=== PATIENT | female | born 1940 | race Caucasian/White ===

== ENCOUNTER 2019-10-03 10:22 | Inpatient (IN) | payer MEDICARE ==
--- NOTE | 2019-10-03 11:06 | CT ---
[id number] CT/CT Head WO IV EXAM: CT Head WO IV CLINICAL DATA: ALTERED MENTAL STATUS. COMPARISON STUDY: June 29, 2017. FINDINGS: Numerous foci of hyperdensity within the left parietal lobe with surrounding edema. These are consistent with acute hemorrhage and may represent hemorrhagic metastases. There is mass effect on the surrounding brain with approximately 3 mm of [id number] shift of midline. The largest focus measures up to 2.5 cm. Generalized parenchymal atrophy with scattered areas of nonspecific white matter disease, commonly seen as sequela of chronic microvascular ischemia. Soft tissues are unremarkable. Paranasal sinuses and mastoid air cells are clear. IMPRESSION: Numerous hyperdense foci within the left parietal lobe with surrounding edema. This is consistent with acute hemorrhage and likely represents hemorrhagic metastasis. There is mass effect on the surrounding brain with approximately 3 mm of [id number] shift of midline. The largest focus measures up to 2.5 cm. Findings were discussed with ordering provider at time of dictation. Patricio Torres DO 10/03/19 1105 Thank you for allowing us to participate in the care of your patient.
[2019-10-03] MEDS ORDERED: Sodium Chloride 0.9% 10 ML Syringe FLUSH PRN (11:10)
[2019-10-03] MEDS ORDERED: Sodium Chloride 0.9% 500 ML IV SCH (11:15)
--- NOTE | 2019-10-03 11:29 | EDM.PDOC ---
<Robert Sal - Last Filed: 10/03/19 12:04> ED HPI GENERAL MEDICAL PROBLEM - General Chief Complaint: Genitourinary Problem Stated Complaint: SHORT OF BREATH Time Seen by Provider: 10/03/19 10:39 Source of Information: Reports: Patient, Family (Daughter) History Limitations: Reports: No Limitations - History of Present Illness INITIAL COMMENTS - FREE TEXT/NARRATIVE: Patient is a 78-year-old female who presents to the emergency department this morning via EMS for complaint of confusion and hematuria. Her daughter is an RN and is an additional historian. Patient states last couple days she's felt confused and her daughter noticed today that she had blood in her urine. Patient does have a history of renal cancer and a history of nephrectomy. 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 At this time patient denies headache, blurry vision, neck stiffness, fever, chest pain, abdominal pain, nausea, vomiting, diarrhea, dysuria, flank pain, or lower extremity edema. Onset: Gradual Duration: Day(s): Severity: Mild Improves with: Reports: None Worsens with: Reports: None Context: Denies: Trauma Associated Symptoms: Reports: Confusion, Shortness of Breath, Weakness. 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 - Related Data Allergies Allergy/AdvReac Type Severity Reaction Status Date / Time latex Allergy Rash Verified 10/03/19 10:45 nylon Allergy Itching Verified 10/03/19 10:36 Penicillins Allergy Anaphylactic Verified 10/04/19 02:34 Shock MSG Allergy Cannot Uncoded 10/03/19 10:59 Remember preservatives Allergy Edema Uncoded 10/03/19 10:59 processed meats Allergy Edema Uncoded 10/03/19 10:59 Home Meds: Home Meds Aspirin [Ecotrin] 81 mg PO DAILY 07/05/17 [History] Hydrocodone/Acetaminophen [Hydrocodon-Acetaminophen 5-325] 1 each PO TID PRN 10/21 [History] Levothyroxine 112 mcg PO ACBREAKFAST 07/05/17 [History] Lisinopril [Zestril] 10 mg PO DAILY 07/05/17 [History] Acetaminophen [Acetaminophen Extra Strength] 500 mg PO Q4H PRN 10/03/19 [History ] Amitriptyline [Elavil] 10 mg PO BEDTIME 10/03/19 [History] Ascorbic Acid 500 mg PO DAILY 10/03/19 [History] Calcium Carbonate/Vitamin D3 [Caltrate 600 Plus D3 Tablet] 1 tab PO DAILY [History] PARoxetine [Paxil] 10 mg PO DAILY 10/03/19 [History] dexAMETHasone [Dexamethasone] 4 mg PO BID 10/03/19 [History] Past Medical History HEENT History: Reports: Hard of Hearing, Impaired Vision Cardiovascular History: Reports: Hypertension Gastrointestinal History: Reports: Hiatal Hernia Genitourinary History: Reports: Other (See Below) Other Genitourinary History: left renal carcinoma 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: Dysfunctional Uterine Bleeding, Musculoskeletal History: Reports: Back Pain, Chronic, Other (See Below) Other Musculoskeletal History: scoliosis Neurological History: Reports: Other (See Below) Other Neuro History: brain mets Psychiatric History: Reports: Depression Endocrine/Metabolic History: Reports: Hypothyroidism, Other (See Below) Other Endocrine/Metabolic History: enlarged thyroid h/o Immunologic History: Reports: Immunosuppression Oncologic (Cancer) History: Reports: Brain, Lung, Metastatic, Renal - Past Surgical History Head Surgeries/Procedures: Reports: None HEENT Surgical History: Reports: None Cardiovascular Surgical History: Reports: None GI Surgical History: Reports: None Female Surgical History: Reports: Hysterectomy, Nephrectomy Endocrine Surgical History: Reports: Thyroidectomy Neurological Surgical History: Reports: None Musculoskeletal Surgical History: Reports: Knee Replacement, Shoulder Surgery, Other (See Below) Other Musculoskeletal Surgeries/Procedures:: total knees x 2, bilat. shoulder surgery. Oncologic Surgical History: Reports: None Social & Family History - Family History Family Medical History: Noncontributory - Caffeine Use Caffeine Use: Reports: Tea ED ROS GENERAL - Review of Systems Review Of Systems: Comprehensive ROS is negative, except as noted in HPI. Constitutional: Reports: Weakness HEENT: Reports: No Symptoms Respiratory: Reports: Shortness of Breath Cardiovascular: Reports: No Symptoms Endocrine: Reports: No Symptoms GI/Abdominal: Reports: No Symptoms : Reports: Hematuria Musculoskeletal: Reports: No Symptoms Skin: Reports: No Symptoms Neurological: Reports: Confusion, Pre-Existing Deficit, Weakness. Denies: Change in Speech Psychiatric: Reports: No Symptoms Hematologic/Lymphatic: Reports: No Symptoms Immunologic: Reports: No Symptoms ED EXAM, GENERAL - Physical Exam Exam: See Below Exam Limited By: No Limitations General Appearance: Alert, WD/WN, No Apparent Distress Eye Exam: Bilateral Eye: Normal Inspection Nose: Normal Inspection, Normal Mucosa, No Blood Throat/Mouth: Normal Inspection, Normal Oropharynx, No Airway Compromise Head: Atraumatic, Normocephalic Neck: Normal Inspection. No: Lymphadenopathy (L), Lymphadenopathy (R) Respiratory/Chest: No Respiratory Distress, Lungs Clear, Normal Breath Sounds, No Accessory Muscle Use, Chest Non-Tender Cardiovascular: Regular Rate, Rhythm, No Murmur GI/Abdominal: Normal Bowel Sounds, Soft, Non-Tender, No Organomegaly, No Distention, No Abnormal Bruit, No Mass Back Exam: Normal Inspection. No: CVA Tenderness (L), CVA Tenderness (R) Extremities: Normal Inspection, No Pedal Edema Neurological: Alert, Oriented, CN II-XII Intact, Normal Cognition, No Motor/ Sensory Deficits Psychiatric: Normal Affect, Normal Mood Skin Exam: Warm, Dry, Intact, Normal Color, No Rash Lymphatic: No Adenopathy Course - Vital Signs Last Recorded V/S: Last Vital Signs Temp 36.1 C 10/04/19 06:54 Pulse 73 10/04/19 06:54 Resp 20 10/04/19 06:54 BP 134/77 10/04/19 06:54 Pulse Ox 92 L 10/04/19 06:54 - Orders/Labs/Meds Orders: Active Orders 24 hr Category Date Time Status Peripheral IV Care [RC] . DIRECTED Care 10/03/19 11:10 Inactive Medication Orders Acetaminophen (Tylenol Extra Strength) 500 mg PO Q4H PRN PRN Reason: Pain Hydrocodone Bitart/Acetaminophen (Roebling 325-5 Mg) 1 tab PO TID PRN PRN Reason: Pain Al Hydroxide/Mg Hydroxide (Mag-Al Plus) 30 ml PO Q6H PRN PRN Reason: Indigestion Amitriptyline HCl (Elavil) 10 mg PO BEDTIME [facility] Last Admin: 10/03/19 20:48 Dose: 10 mg Ascorbic Acid (Vitamin C) 500 mg PO DAILY [facility] Last Admin: 10/04/19 08:35 Dose: 500 mg Aspirin (Halfprin) 81 mg PO DAILY [facility] Last Admin: 10/04/19 08:35 Dose: 81 mg Calcium Carbonate/Glycine (Tums) 500 - 1,000 mg PO Q4H PRN PRN Reason: Indigestion Last Admin: 10/03/19 17:38 Dose: 1,000 mg Calcium Citrate (Calcium Citrate + D) 2 tab PO DAILY [facility] Last Admin: 10/04/19 08:35 Dose: 2 tab Dexamethasone (Dexamethasone) 4 mg PO BID [facility] Stop: 10/18/19 21:01 Last Admin: 10/04/19 08:35 Dose: 4 mg Admin: 10/03/19 20:48 Dose: 4 mg Enoxaparin Sodium (Lovenox) 40 mg SUBCUT Q24H [facility] Furosemide (Lasix) 10 mg IVPUSH BID [facility] Ciprofloxacin/Dextrose 400 mg/ (Premix) 200 mls @ 200 mls/hr IV Q24H [facility] Last Admin: 10/03/19 15:36 Dose: 200 mls/hr Sodium Chloride (Normal Saline) 50 mls @ 50 mls/hr IV DAILY@1515 [facility] Levothyroxine Sodium (Levothyroxine) 112 mcg PO ACBREAKFAST [facility] Last Admin: 10/04/19 08:05 Dose: 112 mcg Paroxetine HCl (Paxil) 10 mg PO DAILY [facility] Last Admin: 10/04/19 08:35 Dose: 10 mg Labs: Laboratory Tests 10/03/19 10/03/19 10/03/19 Range/Units 10:55 10:55 10:55 WBC 11.99 H (5.00-10.00) 10^3/uL RBC 3.60 L (3.80-5.50) 10^6/uL Hgb 10.4 L (12.0-16.0) g/dL Hct 31.3 L (37.0-47.0) % MCV 86.9 (82.0-92.0) fL MCH 28.9 (27.0-31.0) pg MCHC 33.2 (32.0-36.0) g/dL RDW 17.4 H (11.5-14.5) % Plt Count 162 (150-400) 10^3/uL MPV 9.9 (7.4-10.4) fL Immature Gran % (Auto) 2.3 (0.0-5.0) % Neut % (Auto) 90.0 H (50.0-70.0) % Lymph % (Auto) 3.4 L (20.0-40.0) % Colbert % (Auto) 4.3 (2.0-8.0) % Eos % (Auto) 0.0 L (1.0-3.0) % Baso % (Auto) 0.0 (0.0-1.0) % Immature Gran # (Auto) 0.28 (0.00-0.50) 10^3/uL Neut # (Auto) 10.78 H (2.50-7.00) 10^3/uL Lymph # (Auto) 0.41 L (1.00-4.00) 10^3/uL Colbert # (Auto) 0.52 (0.10-0.80) 10^3/uL Eos # (Auto) 0.00 L (0.10-0.30) 10^3/uL Baso # (Auto) 0.00 (0.00-0.10) 10^3/uL PT 9.5 (8.9-11.4) SEC INR 0.9 (0.9-1.1) APTT 21.5 L (23.1-31.9) SEC Sodium 132 L (136-145) mmol/L Potassium 5.2 (3.3-5.3) mmol/L Chloride 100 (98-115) mmol/L Carbon Dioxide 23.7 (21.0-32.0) mmol/L Anion Gap 13.5 (5-15) mmol/L BUN 91 H* D (6-25) mg/dL Creatinine 3.14 H D (0.51-1.17) mg/dL Est Cr Clr Drug Dosing 12.02 mL/min Estimated GFR (MDRD) 14 mL/min Glucose 84 (75 - 99) mg/dL Calcium 9.3 (8.7-10.3) mg/dL Total Bilirubin 0.5 (0.2-1.0) mg/dL AST 27 (15-37) U/L ALT 34 (12-78) U/L Alkaline Phosphatase 69 (46-116) IU/L Ammonia (11-32) umol/L Total Protein 5.1 L (6.4-8.2) g/dL Albumin 2.16 L (3.00-4.80) g/dL Free T4 0.71 (0.59-1.17) ng/dL TSH, Ultra Sensitive 0.450 (0.340-4.820) uIU/mL Specimen Type Urine Color (YELLOW) Urine Appearance (CLEAR) Urine pH (5.0-9.0) Ur Specific [place] (1.005-1.030) Urine Protein (NEGATIVE) mg/dL Urine Glucose (UA) (NEGATIVE) mg/dL Urine Ketones (NEGATIVE) mg/dL Urine Occult Blood (NEGATIVE) Urine Nitrite (NEGATIVE) Urine Bilirubin (NEGATIVE) Urine Urobilinogen (0.2-1.0) E.U./dL Ur Leukocyte Esterase (NEGATIVE) Urine RBC (0-5) /HPF Urine WBC (0-5) /HPF Ur Epithelial Cells /LPF Urine Bacteria (NONE TO FEW) /HPF 10/03/19 10/03/19 Range/Units 10:55 11:40 WBC (5.00-10.00) 10^3/uL RBC (3.80-5.50) 10^6/uL Hgb (12.0-16.0) g/dL Hct (37.0-47.0) % MCV (82.0-92.0) fL MCH (27.0-31.0) pg MCHC (32.0-36.0) g/dL RDW (11.5-14.5) % Plt Count (150-400) 10^3/uL MPV (7.4-10.4) fL Immature Gran % (Auto) (0.0-5.0) % Neut % (Auto) (50.0-70.0) % Lymph % (Auto) (20.0-40.0) % Colbert % (Auto) (2.0-8.0) % Eos % (Auto) (1.0-3.0) % Baso % (Auto) (0.0-1.0) % Immature Gran # (Auto) (0.00-0.50) 10^3/uL Neut # (Auto) (2.50-7.00) 10^3/uL Lymph # (Auto) (1.00-4.00) 10^3/uL Colbert # (Auto) (0.10-0.80) 10^3/uL Eos # (Auto) (0.10-0.30) 10^3/uL Baso # (Auto) (0.00-0.10) 10^3/uL PT (8.9-11.4) SEC INR (0.9-1.1) APTT (23.1-31.9) SEC Sodium (136-145) mmol/L Potassium (3.3-5.3) mmol/L Chloride (98-115) mmol/L Carbon Dioxide (21.0-32.0) mmol/L Anion Gap (5-15) mmol/L BUN (6-25) mg/dL Creatinine (0.51-1.17) mg/dL Est Cr Clr Drug Dosing mL/min Estimated GFR (MDRD) mL/min Glucose (75 - 99) mg/dL Calcium (8.7-10.3) mg/dL Total Bilirubin (0.2-1.0) mg/dL AST (15-37) U/L ALT (12-78) U/L Alkaline Phosphatase (46-116) IU/L Ammonia 15 (11-32) umol/L Total Protein (6.4-8.2) g/dL Albumin (3.00-4.80) g/dL Free T4 (0.59-1.17) ng/dL TSH, Ultra Sensitive (0.340-4.820) uIU/mL Specimen Type Urinqcath Urine Color Yellow (YELLOW) Urine Appearance Cloudy H (CLEAR) Urine pH 5.0 (5.0-9.0) Ur Specific [place] 1.015 (1.005-1.030) Urine Protein >=300 H (NEGATIVE) mg/dL Urine Glucose (UA) Negative (NEGATIVE) mg/dL Urine Ketones Negative (NEGATIVE) mg/dL Urine Occult Blood Large H (NEGATIVE) Urine Nitrite Negative (NEGATIVE) Urine Bilirubin Negative (NEGATIVE) Urine Urobilinogen 0.2 (0.2-1.0) E.U./dL Ur Leukocyte Esterase Trace H (NEGATIVE) Urine RBC Packed (0-5) /HPF Urine WBC >100 H (0-5) /HPF Ur Epithelial Cells Moderate H /LPF Urine Bacteria Many H (NONE TO FEW) /HPF Meds: Medications Generic Name Dose Route Start Last Admin Trade Name Freq PRN Reason Stop Dose Admin Acetaminophen 500 mg 10/03/19 15:51 Tylenol Extra Strength PO Q4H PRN Pain Hydrocodone Bitart/Acetaminophen 1 tab 10/03/19 15:51 Roebling 325-5 Mg PO TID PRN Pain Al Hydroxide/Mg Hydroxide 30 ml 10/03/19 16:51 Mag-Al Plus PO Q6H PRN Indigestion Amitriptyline HCl 10 mg 10/03/19 21:00 10/03/19 20:48 Elavil PO 10 mg BEDTIME [facility] Administration Ascorbic Acid 500 mg 10/04/19 09:00 10/04/19 08:35 Vitamin C PO 500 mg DAILY [facility] Administration Aspirin 81 mg 10/04/19 09:00 10/04/19 08:35 Halfprin PO 81 mg DAILY [facility] Administration Calcium Carbonate/Glycine 500 - 1,000 mg 10/03/19 16:49 10/03/19 17:38 Tums PO 1,000 mg Q4H PRN Administration Indigestion Calcium Citrate 2 tab 10/04/19 09:00 10/04/19 08:35 Calcium Citrate + D PO 2 tab DAILY [facility] Administration Dexamethasone 4 mg 10/03/19 21:00 10/04/19 08:35 Dexamethasone PO 10/18/19 21:01 4 mg BID [facility] Administration Enoxaparin Sodium 40 mg 10/04/19 11:45 Lovenox SUBCUT Q24H [facility] Furosemide 10 mg 10/04/19 11:30 Lasix IVPUSH BID [facility] Ciprofloxacin/Dextrose 400 mg/ 200 mls @ 200 mls/hr 10/03/19 15:15 10/03/19 15:36 Premix IV 200 mls/hr Q24H [facility] Administration Sodium Chloride 50 mls @ 50 mls/hr 10/04/19 15:15 Normal Saline IV DAILY@1515 [facility] Levothyroxine Sodium 112 mcg 10/04/19 07:30 10/04/19 08:05 Levothyroxine PO 112 mcg ACBREAKFAST [facility] Administration Paroxetine HCl 10 mg 10/04/19 09:00 10/04/19 08:35 Paxil PO 10 mg DAILY [facility] Administration Discontinued Medications Generic Name Dose Route Start Last Admin Trade Name Freq PRN Reason Stop Dose Admin Furosemide 10 mg 10/03/19 18:15 10/03/19 18:46 Lasix IVPUSH 10/03/19 18:16 10 mg NOW ONE Administration Sodium Chloride 500 mls @ 500 mls/hr 10/03/19 11:15 Normal Saline IV ASDIRECTED [facility] Sodium Chloride 1,000 mls @ 999 mls/hr 10/03/19 11:30 10/03/19 11:25 Normal Saline IV 999 mls/hr ASDIRECTED [facility] Administration Sodium Chloride 1,000 mls @ 200 mls/hr 10/03/19 14:30 10/03/19 15:37 Normal Saline IV 200 mls/hr ASDIRECTED [facility] Administration Sodium Chloride 10 ml 10/03/19 11:10 Saline Flush FLUSH Q8HR PRN keep vein open - Radiology Interpretation Free Text/Narrative:: CT head without contrast shows numerous hyperdense foci with surrounding edema. This is said to be consistent with acute hemorrhage likely represents hemorrhagic metastasis. - Re-Assessments/Exams Free Text/Narrative Re-Assessment/Exam: 10/03/19 11:40 Discussed CAT scan of head without contrast with Dr. Torres from [facility]. Unsure if metastasis is worsening or bleeding at this juncture. Will contact [facility] where she had a previous CT for comparison. 10/03/19 11:58 Discussed case with Josemanuel for hand off. Radiology comparison pending. 10/03/19 12:06 Departure - Departure Disposition: Admitted As Inpatient 65 Clinical Impression: UTI, Urinary tract infectious disease - Discharge Information Sepsis Event Note - Evaluation Sepsis Screening Result: No Definite Risk - Focused Exam Date Exam was Performed: 10/03/19 Time Exam was Performed: 12:04 MLP Sign Off - Signature Requirements MLP Sign Off: Yes :: Transfer of care from Robert Sal to Josemanuel Jevon <JevonJosemanuel S - Last Filed: 10/04/19 12:07> Departure - Departure Time of Disposition: 14:00 Sepsis Event Note - Focused Exam Date Exam was Performed: 10/04/19 Time Exam was Performed: 12:05 - Problem List & Annotations (1) UTI, Urinary tract infectious disease SNOMED Code(s): 64278989 Code(s): N39.0 - URINARY TRACT INFECTION, SITE NOT SPECIFIED Status: Acute Priority: High Current Visit: Yes (2) Brain cancer SNOMED Code(s): 048665736 Code(s): C71.9 - MALIGNANT NEOPLASM OF BRAIN, UNSPECIFIED Status: Chronic Priority: High Current Visit: Yes - Problem List Review Problem List Initiated/Reviewed/Updated: Yes - Assessment/Plan Plan: Discussed with DOUG Walker and accepted for admission. We discussed the unchanged CT comparison and her renal failure.
[2019-10-03] MEDS ORDERED: Sodium Chloride 0.9% 1,000 ML IV SCH ×2 (11:30→14:30)
[2019-10-03 11:50] LABS: ANION GAP 13.5 mmol/L (5-15)
[2019-10-03] MEDS: Ciprofloxacin in D5W 400 MG in Premix Bag 1 BAG IV SCH ×2 (15:36)
[2019-10-03] MEDS ORDERED: Acetaminophen 500 MG Tab PO PRN (15:51)
[2019-10-03] MEDS ORDERED: Acetaminophen/HYDROcodone 325-5 MG Tab PO PRN (15:51)
[2019-10-03] MEDS ORDERED: Aluminum Hydroxide/Magnesium Hydroxide/Simethicone Susp 30 ML Cup PO PRN (16:51)
[2019-10-03] MEDS: Calcium Carbonate 500 MG Tab.Chew PO PRN (17:38)
--- NOTE | 2019-10-03 17:41 | CR ---
[id number] RAD/RAD Chest PA or AP 1V EXAM: RAD Chest PA or AP 1V INDICATION: RULE OUT FLUID OVERLOAD. COMPARISON: June 29, 2017. DISCUSSION: Cardiomediastinal silhouette is stable in size and contour. Pulmonary vascular congestion. Elevation the right hemidiaphragm. No pneumothorax or pleural effusion. Postsurgical changes of left rotator cuff. IMPRESSION: Pulmonary vascular congestion. Patricio Torres DO 10/03/19 3065 Thank you for allowing us to participate in the care of your patient.
[2019-10-03 17:49] LABS: ANION GAP 17.7 mmol/L (5-15)
[2019-10-03] MEDS ORDERED: Furosemide 40 MG/4 ML VIAL IVPUSH ONE (18:15)
[2019-10-03] MEDS: Dexamethasone 4 MG Tab PO SCH (20:48)
[2019-10-03] MEDS: Amitriptyline 10 MG Tab PO SCH (20:48)
[2019-10-04] MEDS: Levothyroxine 112 MCG Tab PO SCH (08:05)
[2019-10-04 08:32] LABS: ANION GAP 15.1 mmol/L (5-15)
[2019-10-04] MEDS: Dexamethasone 4 MG Tab PO SCH ×2 (08:35→21:24)
[2019-10-04] MEDS: Ascorbic Acid 500 MG Tab PO SCH (08:35)
[2019-10-04] MEDS: Aspirin 81 MG Tab.EC PO SCH (08:35)
[2019-10-04] MEDS: PARoxetine 20 MG Tab PO SCH (08:35)
[2019-10-04] MEDS: Calcium Citrate/Vitamin D3 315 MG-250 Unit Tab PO SCH (08:35)
--- NOTE | 2019-10-04 10:52 | PCM.HP.2 ---
H&P History of Present Illness - General Date of Service: 10/04/19 Admit Problem/Dx: Admission Diagnosis/Problem Admission Diagnosis/Problem UTI, Urinary tract infectious disease Source of Information: Patient, Family, Old Records, RN History Limitations: Reports: No Limitations - Related Data Allergies/Adverse Reactions: Allergies Allergy/AdvReac Type Severity Reaction Status Date / Time latex Allergy Rash Verified 10/03/19 10:45 nylon Allergy Itching Verified 10/03/19 10:36 Penicillins Allergy Anaphylactic Verified 10/04/19 02:34 Shock MSG Allergy Cannot Uncoded 10/03/19 10:59 Remember preservatives Allergy Edema Uncoded 10/03/19 10:59 processed meats Allergy Edema Uncoded 10/03/19 10:59 Home Medications: Home Meds Aspirin [Ecotrin] 81 mg PO DAILY 07/05/17 [History] Hydrocodone/Acetaminophen [Hydrocodon-Acetaminophen 5-325] 1 each PO TID PRN 10/21 [History] Levothyroxine 112 mcg PO ACBREAKFAST 07/05/17 [History] Lisinopril [Zestril] 10 mg PO DAILY 07/05/17 [History] Acetaminophen [Acetaminophen Extra Strength] 500 mg PO Q4H PRN 10/03/19 [History ] Amitriptyline [Elavil] 10 mg PO BEDTIME 10/03/19 [History] Ascorbic Acid 500 mg PO DAILY 10/03/19 [History] Calcium Carbonate/Vitamin D3 [Caltrate 600 Plus D3 Tablet] 1 tab PO DAILY [History] PARoxetine [Paxil] 10 mg PO DAILY 10/03/19 [History] dexAMETHasone [Dexamethasone] 4 mg PO BID 10/03/19 [History] Past Medical History HEENT History: Reports: Hard of Hearing, Impaired Vision Cardiovascular History: Reports: Hypertension Respiratory History: Reports: Other (See Below) Other Respiratory History: Mass on the right lung, just completed radiation therapy Gastrointestinal History: Reports: Hiatal Hernia Genitourinary History: Reports: Other (See Below) Other Genitourinary History: left renal carcinoma 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 Uterine Bleeding, Musculoskeletal History: Reports: Back Pain, Chronic, Other (See Below) Other Musculoskeletal History: scoliosis Neurological History: Reports: Other (See Below) Other Neuro History: brain mets Psychiatric History: Reports: Depression Endocrine/Metabolic History: Reports: Hypothyroidism, Other (See Below) Other Endocrine/Metabolic History: enlarged thyroid h/o Immunologic History: Reports: Immunosuppression Oncologic (Cancer) History: Reports: Brain, Lung, Metastatic, Renal - Past Surgical History Head Surgeries/Procedures: Reports: None HEENT Surgical History: Reports: None Cardiovascular Surgical History: Reports: None GI Surgical History: Reports: None Female Surgical History: Reports: Hysterectomy, Nephrectomy Endocrine Surgical History: Reports: Thyroidectomy Neurological Surgical History: Reports: None Musculoskeletal Surgical History: Reports: Knee Replacement, Shoulder Surgery, Other (See Below) Other Musculoskeletal Surgeries/Procedures:: total knees x 2, bilat. shoulder surgery. Oncologic Surgical History: Reports: Other (See Below) Other Oncologic Surgeries/Procedures: left nephrectomy Social & Family History - Family History Family Medical History: Noncontributory - Tobacco Use Smoking Status *Q: Former Smoker Used Tobacco, but Quit: No Month/Year Tobacco Last Used: 50 - Caffeine Use Caffeine Use: Reports: None - Recreational Drug Use Recreational Drug Use: No H&P Review of Systems - Review of Systems: Review Of Systems: See Below General: Reports: Malaise, Weakness, Fatigue, Decreased Appetite. Denies: Fever , Chills, Night Sweats, Diaphoresis HEENT: Reports: No Symptoms Pulmonary: Reports: No Symptoms Cardiovascular: Reports: Edema. Denies: Chest Pain, Palpitations, Dyspnea on Exertion, Orthopnea, PND, Blood Pressure Problem Gastrointestinal: Reports: Decreased Appetite. Denies: Bloody Stool Genitourinary: Reports: Other (Urine now clear no more hematuria). Denies: Incontinence Musculoskeletal: Reports: Joint Swelling Skin: Reports: Dryness Psychiatric: Reports: Mood Lability. Denies: Confusion, Anxiety, Agitation, Cravings, Hallucinations (Auditory) Neurological: Reports: Pre-Existing Deficit, Weakness. Denies: Confusion, Headache, Seizure, Tingling, Tremors, Trouble Speaking Hematologic/Lymphatic: Reports: Anemia Exam - Exam Exam: See Below - Vital Signs Vital Signs: Last Vital Signs Temp 97.0 F 10/04/19 06:54 Pulse 73 10/04/19 06:54 Resp 20 10/04/19 06:54 BP 134/77 10/04/19 06:54 Pulse Ox 92 L 10/04/19 06:54 Weight: 198 lb 3 oz - Exam Quality Assessment: No: Supplemental Oxygen HEENT: Mucosa Moist & [place]: JVD Lungs: Crackles Cardiovascular: Regular Rate, Regular Rhythm GI/Abdominal Exam: Normal Bowel Sounds, Soft (Female) Exam: Deferred Back Exam: No: CVA Tenderness (L) Extremities: Pedal Edema Peripheral Pulses: 2+: Radial (L), Radial (R) Skin: Warm, Dry, Intact Neurological: Normal Speech, Normal Tone Neuro Extensive - Mental Status: Alert, Oriented x3, Memory Intact Neuro Extensive - Motor, Sensory, Reflexes: CN II-XII Intact Psychiatric: Alert, Labile Mood, Depressed - Patient Data Lab Results Last 24 hrs: Laboratory Results - last 24 hr 10/03/19 10/03/19 10/03/19 Range/Units 10:55 10:55 10:55 WBC 11.99 H (5.00-10.00) 10^3/uL RBC 3.60 L (3.80-5.50) 10^6/uL Hgb 10.4 L (12.0-16.0) g/dL Hct 31.3 L (37.0-47.0) % MCV 86.9 (82.0-92.0) fL MCH 28.9 (27.0-31.0) pg MCHC 33.2 (32.0-36.0) g/dL RDW 17.4 H (11.5-14.5) % Plt Count 162 (150-400) 10^3/uL MPV 9.9 (7.4-10.4) fL Immature Gran % (Auto) 2.3 (0.0-5.0) % Neut % (Auto) 90.0 H (50.0-70.0) % Lymph % (Auto) 3.4 L (20.0-40.0) % [place] % (Auto) 4.3 (2.0-8.0) % Eos % (Auto) 0.0 L (1.0-3.0) % Baso % (Auto) 0.0 (0.0-1.0) % Immature Gran # (Auto) 0.28 (0.00-0.50) 10^3/uL Neut # (Auto) 10.78 H (2.50-7.00) 10^3/uL Lymph # (Auto) 0.41 L (1.00-4.00) 10^3/uL [place] # (Auto) 0.52 (0.10-0.80) 10^3/uL Eos # (Auto) 0.00 L (0.10-0.30) 10^3/uL Baso # (Auto) 0.00 (0.00-0.10) 10^3/uL Add Manual Diff Neutrophils % (Manual) (50-70) % Lymphocytes % (Manual) (20-40) % Monocytes % (Manual) (2-8) % Absolute Neutrophils Lymphocytes # (Manual) Monocytes # (Manual) PT 9.5 (8.9-11.4) SEC INR 0.9 (0.9-1.1) APTT 21.5 L (23.1-31.9) SEC Sodium 132 L (136-145) mmol/L Potassium 5.2 (3.3-5.3) mmol/L Chloride 100 (98-115) mmol/L Carbon Dioxide 23.7 (21.0-32.0) mmol/L Anion Gap 13.5 (5-15) mmol/L BUN 91 H* D (6-25) mg/dL Creatinine 3.14 H D (0.51-1.17) mg/dL Est Cr Clr Drug Dosing 12.02 mL/min Estimated GFR (MDRD) 14 mL/min Glucose 84 (75 - 99) mg/dL Lactic Acid (0.4-2.0) mmol/L Calcium 9.3 (8.7-10.3) mg/dL Total Bilirubin 0.5 (0.2-1.0) mg/dL AST 27 (15-37) U/L ALT 34 (12-78) U/L Alkaline Phosphatase 69 (46-116) IU/L Ammonia (11-32) umol/L B-Natriuretic Peptide (0-100) pg/mL Total Protein 5.1 L (6.4-8.2) g/dL Albumin 2.16 L (3.00-4.80) g/dL Free T4 0.71 (0.59-1.17) ng/dL TSH, Ultra Sensitive 0.450 (0.340-4.820) uIU/mL Specimen Type Urine Color (YELLOW) Urine Appearance (CLEAR) Urine pH (5.0-9.0) Ur Specific [place] (1.005-1.030) Urine Protein (NEGATIVE) mg/dL Urine Glucose (UA) (NEGATIVE) mg/dL Urine Ketones (NEGATIVE) mg/dL Urine Occult Blood (NEGATIVE) Urine Nitrite (NEGATIVE) Urine Bilirubin (NEGATIVE) Urine Urobilinogen (0.2-1.0) E.U./dL Ur Leukocyte Esterase (NEGATIVE) Urine RBC (0-5) /HPF Urine WBC (0-5) /HPF Ur Epithelial Cells /LPF Urine Bacteria (NONE TO FEW) /HPF 10/03/19 10/03/19 10/03/19 Range/Units 10:55 11:40 17:15 WBC (5.00-10.00) 10^3/uL RBC (3.80-5.50) 10^6/uL Hgb (12.0-16.0) g/dL Hct (37.0-47.0) % MCV (82.0-92.0) fL MCH (27.0-31.0) pg MCHC (32.0-36.0) g/dL RDW (11.5-14.5) % Plt Count (150-400) 10^3/uL MPV (7.4-10.4) fL Immature Gran % (Auto) (0.0-5.0) % Neut % (Auto) (50.0-70.0) % Lymph % (Auto) (20.0-40.0) % [place] % (Auto) (2.0-8.0) % Eos % (Auto) (1.0-3.0) % Baso % (Auto) (0.0-1.0) % Immature Gran # (Auto) (0.00-0.50) 10^3/uL Neut # (Auto) (2.50-7.00) 10^3/uL Lymph # (Auto) (1.00-4.00) 10^3/uL [place] # (Auto) (0.10-0.80) 10^3/uL Eos # (Auto) (0.10-0.30) 10^3/uL Baso # (Auto) (0.00-0.10) 10^3/uL Add Manual Diff Neutrophils % (Manual) (50-70) % Lymphocytes % (Manual) (20-40) % Monocytes % (Manual) (2-8) % Absolute Neutrophils Lymphocytes # (Manual) Monocytes # (Manual) PT (8.9-11.4) SEC INR (0.9-1.1) APTT (23.1-31.9) SEC Sodium (136-145) mmol/L Potassium (3.3-5.3) mmol/L Chloride (98-115) mmol/L Carbon Dioxide (21.0-32.0) mmol/L Anion Gap (5-15) mmol/L BUN (6-25) mg/dL Creatinine (0.51-1.17) mg/dL Est Cr Clr Drug Dosing mL/min Estimated GFR (MDRD) mL/min Glucose (75 - 99) mg/dL Lactic Acid 1.9 (0.4-2.0) mmol/L Calcium (8.7-10.3) mg/dL Total Bilirubin (0.2-1.0) mg/dL AST (15-37) U/L ALT (12-78) U/L Alkaline Phosphatase (46-116) IU/L Ammonia 15 (11-32) umol/L B-Natriuretic Peptide (0-100) pg/mL Total Protein (6.4-8.2) g/dL Albumin (3.00-4.80) g/dL Free T4 (0.59-1.17) ng/dL TSH, Ultra Sensitive (0.340-4.820) uIU/mL Specimen Type Urin[place]ath Urine Color Yellow (YELLOW) Urine Appearance Cloudy H (CLEAR) Urine pH 5.0 (5.0-9.0) Ur Specific [place] 1.015 (1.005-1.030) Urine Protein >=300 H (NEGATIVE) mg/dL Urine Glucose (UA) Negative (NEGATIVE) mg/dL Urine Ketones Negative (NEGATIVE) mg/dL Urine Occult Blood Large H (NEGATIVE) Urine Nitrite Negative (NEGATIVE) Urine Bilirubin Negative (NEGATIVE) Urine Urobilinogen 0.2 (0.2-1.0) E.U./dL Ur Leukocyte Esterase Trace H (NEGATIVE) Urine RBC Packed (0-5) /HPF Urine WBC >100 H (0-5) /HPF Ur Epithelial Cells Moderate H /LPF Urine Bacteria Many H (NONE TO FEW) /HPF 10/03/19 10/03/19 10/04/19 Range/Units 17:15 17:15 07:55 WBC (5.00-10.00) 10^3/uL RBC (3.80-5.50) 10^6/uL Hgb (12.0-16.0) g/dL Hct (37.0-47.0) % MCV (82.0-92.0) fL MCH (27.0-31.0) pg MCHC (32.0-36.0) g/dL RDW (11.5-14.5) % Plt Count (150-400) 10^3/uL MPV (7.4-10.4) fL Immature Gran % (Auto) (0.0-5.0) % Neut % (Auto) (50.0-70.0) % Lymph % (Auto) (20.0-40.0) % [place] % (Auto) (2.0-8.0) % Eos % (Auto) (1.0-3.0) % Baso % (Auto) (0.0-1.0) % Immature Gran # (Auto) (0.00-0.50) 10^3/uL Neut # (Auto) (2.50-7.00) 10^3/uL Lymph # (Auto) (1.00-4.00) 10^3/uL [place] # (Auto) (0.10-0.80) 10^3/uL Eos # (Auto) (0.10-0.30) 10^3/uL Baso # (Auto) (0.00-0.10) 10^3/uL Add Manual Diff Neutrophils % (Manual) (50-70) % Lymphocytes % (Manual) (20-40) % Monocytes % (Manual) (2-8) % Absolute Neutrophils Lymphocytes # (Manual) Monocytes # (Manual) PT (8.9-11.4) SEC INR (0.9-1.1) APTT (23.1-31.9) SEC Sodium 135 L 136 (136-145) mmol/L Potassium 4.7 5.0 (3.3-5.3) mmol/L Chloride 103 104 (98-115) mmol/L Carbon Dioxide 19.0 L 21.9 (21.0-32.0) mmol/L Anion Gap 17.7 H 15.1 H (5-15) mmol/L BUN 87 H* 92 H* (6-25) mg/dL Creatinine 3.07 H 3.46 H (0.51-1.17) mg/dL Est Cr Clr Drug Dosing 11.75 10.43 mL/min Estimated GFR (MDRD) 15 13 mL/min Glucose 129 H 96 (75 - 99) mg/dL Lactic Acid (0.4-2.0) mmol/L Calcium 8.4 L 8.7 (8.7-10.3) mg/dL Total Bilirubin 0.4 (0.2-1.0) mg/dL AST 25 (15-37) U/L ALT 32 (12-78) U/L Alkaline Phosphatase 63 (46-116) IU/L Ammonia (11-32) umol/L B-Natriuretic Peptide 25 (0-100) pg/mL Total Protein 4.6 L (6.4-8.2) g/dL Albumin 1.97 L (3.00-4.80) g/dL Free T4 (0.59-1.17) ng/dL TSH, Ultra Sensitive (0.340-4.820) uIU/mL Specimen Type Urine Color (YELLOW) Urine Appearance (CLEAR) Urine pH (5.0-9.0) Ur Specific [place] (1.005-1.030) Urine Protein (NEGATIVE) mg/dL Urine Glucose (UA) (NEGATIVE) mg/dL Urine Ketones (NEGATIVE) mg/dL Urine Occult Blood (NEGATIVE) Urine Nitrite (NEGATIVE) Urine Bilirubin (NEGATIVE) Urine Urobilinogen (0.2-1.0) E.U./dL Ur Leukocyte Esterase (NEGATIVE) Urine RBC (0-5) /HPF Urine WBC (0-5) /HPF Ur Epithelial Cells /LPF Urine Bacteria (NONE TO FEW) /HPF 10/04/19 Range/Units 08:00 WBC 10.31 H (5.00-10.00) 10^3/uL RBC 3.27 L (3.80-5.50) 10^6/uL Hgb 9.5 L (12.0-16.0) g/dL Hct 28.6 L (37.0-47.0) % MCV 87.5 (82.0-92.0) fL MCH 29.1 (27.0-31.0) pg MCHC 33.2 (32.0-36.0) g/dL RDW 17.5 H (11.5-14.5) % Plt Count 139 L (150-400) 10^3/uL MPV 9.1 (7.4-10.4) fL Immature Gran % (Auto) (0.0-5.0) % Neut % (Auto) (50.0-70.0) % Lymph % (Auto) (20.0-40.0) % [place] % (Auto) (2.0-8.0) % Eos % (Auto) (1.0-3.0) % Baso % (Auto) (0.0-1.0) % Immature Gran # (Auto) (0.00-0.50) 10^3/uL Neut # (Auto) (2.50-7.00) 10^3/uL Lymph # (Auto) (1.00-4.00) 10^3/uL [place] # (Auto) (0.10-0.80) 10^3/uL Eos # (Auto) (0.10-0.30) 10^3/uL Baso # (Auto) (0.00-0.10) 10^3/uL Add Manual Diff Yes Neutrophils % (Manual) 95 H (50-70) % Lymphocytes % (Manual) 3 L (20-40) % Monocytes % (Manual) 2 (2-8) % Absolute Neutrophils 9.7945 Lymphocytes # (Manual) 0.3093 Monocytes # (Manual) 0.2062 PT (8.9-11.4) SEC INR (0.9-1.1) APTT (23.1-31.9) SEC Sodium (136-145) mmol/L Potassium (3.3-5.3) mmol/L Chloride (98-115) mmol/L Carbon Dioxide (21.0-32.0) mmol/L Anion Gap (5-15) mmol/L BUN (6-25) mg/dL Creatinine (0.51-1.17) mg/dL Est Cr Clr Drug Dosing mL/min Estimated GFR (MDRD) mL/min Glucose (75 - 99) mg/dL Lactic Acid (0.4-2.0) mmol/L Calcium (8.7-10.3) mg/dL Total Bilirubin (0.2-1.0) mg/dL AST (15-37) U/L ALT (12-78) U/L Alkaline Phosphatase (46-116) IU/L Ammonia (11-32) umol/L B-Natriuretic Peptide (0-100) pg/mL Total Protein (6.4-8.2) g/dL Albumin (3.00-4.80) g/dL Free T4 (0.59-1.17) ng/dL TSH, Ultra Sensitive (0.340-4.820) uIU/mL Specimen Type Urine Color (YELLOW) Urine Appearance (CLEAR) Urine pH (5.0-9.0) Ur Specific [place] (1.005-1.030) Urine Protein (NEGATIVE) mg/dL Urine Glucose (UA) (NEGATIVE) mg/dL Urine Ketones (NEGATIVE) mg/dL Urine Occult Blood (NEGATIVE) Urine Nitrite (NEGATIVE) Urine Bilirubin (NEGATIVE) Urine Urobilinogen (0.2-1.0) E.U./dL Ur Leukocyte Esterase (NEGATIVE) Urine RBC (0-5) /HPF Urine WBC (0-5) /HPF Ur Epithelial Cells /LPF Urine Bacteria (NONE TO FEW) /HPF Result Diagrams: 10/04/19 08:00 10/05/19 07:35 Jose Results Last 24 hrs: Microbiology 10/03/19 11:40 Stool Occult Blood (JOSE) - Final Stool / Feces Sepsis Event Note - Evaluation Sepsis Screening Result: No Definite Risk - Focused Exam Vital Signs: Vital Signs Temp Pulse Resp BP Pulse Ox 10/04/19 06:54 97.0 F 73 20 134/77 92 L 10/04/19 03:00 97.0 F 73 20 136/72 93 L Date Exam was Performed: 10/05/19 Time Exam was Performed: 09:30 Problem List Initiated/Reviewed/Updated: Yes Orders Last 24hrs: Active Orders 24 hr Category Date Time Status Patient Status [ADT] Routine ADT 10/03/19 15:52 Active Patient Status [ADT] Routine ADT 10/03/19 15:54 Active Bladder Scan [RC] ASDIRECTED Care 10/04/19 09:54 Active Communication Order [RC] DAILY Care 10/03/19 17:33 Active Oxygen Therapy [RC] PRN Care 10/03/19 15:55 Active Peripheral IV Care [RC] . DIRECTED Care 10/03/19 11:10 Inactive Pulse Oximetry [RC] PRN Care 10/03/19 15:55 Active Up With Assistance [RC] ASDIRECTED Care 10/03/19 15:54 Active Vital Signs [RC] 0700,1500,2300 Care 10/03/19 15:52 Active Vital Signs [RC] Q4H Care 10/03/19 15:54 Inactive Regular Diet [DIET] Diet 10/03/19 Dinner Active Acetaminophen [Tylenol Extra Strength] Med 10/03/19 15:51 Active 500 mg PO Q4H PRN Acetaminophen/HYDROcodone [[place] 325-5 MG] Med 10/03/19 15:51 Active 1 tab PO TID PRN Alum Hydrox/Mag Hydrox/Simeth [Mag-Al Plus] Med 10/03/19 16:51 Active 30 ml PO Q6H PRN Amitriptyline [Elavil] Med 10/03/19 21:00 Active 10 mg PO BEDTIME Ascorbic Acid [Vitamin C] Med 10/04/19 09:00 Active 500 mg PO DAILY Aspirin [Halfprin] Med 10/04/19 09:00 Active 81 mg PO DAILY Calcium Carbonate [Tums] Med 10/03/19 16:49 Active 500 - 1,000 mg PO Q4H PRN Calcium Citrate/Vitamin D3 [Calcium Citrate + D] Med 10/04/19 09:00 Active 2 tab PO DAILY Ciprofloxacin in D5W [Cipro in D5W 400 MG/200 ML] 400 Med 10/03/19 15:15 Active mg Premix Bag 1 bag IV Q24H Levothyroxine Med 10/04/19 07:30 Active 112 mcg PO ACBREAKFAST PARoxetine [Paxil] Med 10/04/19 09:00 Active 10 mg PO DAILY Sodium Chloride 0.9% [Normal Saline] 50 ml Med 10/04/19 15:15 Active IV DAILY@1515 dexAMETHasone Med 10/03/19 21:00 Active 4 mg PO BID Resuscitation Status Routine Resus Stat 10/03/19 17:37 Ordered Medication Orders Acetaminophen (Tylenol Extra Strength) 500 mg PO Q4H PRN PRN Reason: Pain Hydrocodone Bitart/Acetaminophen ([place] 325-5 Mg) 1 tab PO TID PRN PRN Reason: Pain Al Hydroxide/Mg Hydroxide (Mag-Al Plus) 30 ml PO Q6H PRN PRN Reason: Indigestion Amitriptyline HCl (Elavil) 10 mg PO BEDTIME [facility] Last Admin: 10/03/19 20:48 Dose: 10 mg Ascorbic Acid (Vitamin C) 500 mg PO DAILY [facility] Last Admin: 10/04/19 08:35 Dose: 500 mg Aspirin (Halfprin) 81 mg PO DAILY [facility] Last Admin: 10/04/19 08:35 Dose: 81 mg Calcium Carbonate/Glycine (Tums) 500 - 1,000 mg PO Q4H PRN PRN Reason: Indigestion Last Admin: 10/03/19 17:38 Dose: 1,000 mg Calcium Citrate (Calcium Citrate + D) 2 tab PO DAILY [facility] Last Admin: 10/04/19 08:35 Dose: 2 tab Dexamethasone (Dexamethasone) 4 mg PO BID [facility] Stop: 10/18/19 21:01 Last Admin: 10/04/19 08:35 Dose: 4 mg Admin: 10/03/19 20:48 Dose: 4 mg Ciprofloxacin/Dextrose 400 mg/ (Premix) 200 mls @ 200 mls/hr IV Q24H [facility] Last Admin: 10/03/19 15:36 Dose: 200 mls/hr Sodium Chloride (Normal Saline) 50 mls @ 50 mls/hr IV DAILY@1515 [facility] Levothyroxine Sodium (Levothyroxine) 112 mcg PO ACBREAKFAST [facility] Last Admin: 10/04/19 08:05 Dose: 112 mcg Paroxetine HCl (Paxil) 10 mg PO DAILY [facility] Last Admin: 10/04/19 08:35 Dose: 10 mg Assessment/Plan Comment:: History of present illness Olga is a pleasant 78-year-old female who admitted into inpatient status when she presented to the ED due to some confusion along with hematuria. Patient dated that she to be more confused and she noted blood in her urine. Patient does have a history of renal cancer and a history of nephrectomy. Does have h metastases to the brain diagnosed July 2019. Was admitted to [facility] on September 16 related to increase confusion and weakness. Pertinent history Diagnosed with stage IV renal cell CA ~ 5 years ago that was thought to in remission however she presented for similar symptoms and was found to have what appeared to be brain metastases. She underwent attempted biopsy but this was unsuccessful due to bleeding and hemoptysis per family. She is currently being treated for suspected recurrent renal cell carcinoma. She declined chemotherapy but is undergoing radiation therapy recently just had. She was not felt to be a surgical candidate for the brain lesions. Placed on Dexamethasone hopes of decreasing titration dosages however the family quite adamant that patient's confusion baseline increases recent dosages. CT head: No worsening intracranial metastasis Primary hospital problems --Acute kidney injury/prerenal azotemia likely as no rash, no fever, no urine casts, eosinophils low. 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 --Renal dose Cipro --Forego catheter as patient oriented and not incontinent --Strict I/O with daily wts --Encourage PO fluids --Monitor electrolytes closely --Bladder scan --Compression stockings to BLE with Wide sebastien-wraps BUE --Changed code status to FULL CODE --DVT phylaxis, LMWH, monitor plts --Spouse and daughter at bedside and agree with plan of care --PT consult --Consultations: spoke with oncall payroll services analyst Marlon regarding the need for [employer] OPERATOR, he did not think was necessary at this time and agreed with plan of care. - Mortality Measure Prognosis:: Poor
[2019-10-04] MEDS: Furosemide 40 MG/4 ML VIAL IVPUSH SCH ×2 (12:56→17:56)
[2019-10-04] MEDS: Enoxaparin 30 MG/0.3 ML Syringe SUBCUT SCH (12:57)
[2019-10-04] MEDS: Sodium Chloride 0.9% 50 ML IV SCH (15:58)
[2019-10-04] MEDS: Ciprofloxacin in D5W 400 MG in Premix Bag 1 BAG IV SCH ×2 (15:58)
[2019-10-04] MEDS: Amitriptyline 10 MG Tab PO SCH (21:24)
[2019-10-05] MEDS: Levothyroxine 112 MCG Tab PO SCH (07:46)
[2019-10-05 08:13] LABS: ANION GAP 15.2 mmol/L (5-15)
[2019-10-05] MEDS: Calcium Citrate/Vitamin D3 315 MG-250 Unit Tab PO SCH (08:45)
[2019-10-05] MEDS: Dexamethasone 4 MG Tab PO SCH ×2 (08:45→21:49)
[2019-10-05] MEDS: Enoxaparin 30 MG/0.3 ML Syringe SUBCUT SCH (08:46)
[2019-10-05] MEDS: Ascorbic Acid 500 MG Tab PO SCH (08:46)
[2019-10-05] MEDS: Aspirin 81 MG Tab.EC PO SCH (08:46)
[2019-10-05] MEDS: Furosemide 40 MG/4 ML VIAL IVPUSH SCH (08:46)
[2019-10-05] MEDS: PARoxetine 20 MG Tab PO SCH (08:46)
--- NOTE | 2019-10-05 11:01 | PN ---
10/05/2019 PATIENT NAME: MARY ROLLE SUBJECTIVE: This is a 78-year-old female patient, who was admitted to the hospital on October 03 from the ER. The patient was having some episodes of shortness of breath at home. The patient does have a long history of renal cancer where she had 1 kidney removed 5 years ago due to cancer. Now, she has metastasis to her lung, and into her brain. The patient was recently hospitalized in [place], recently with encephalopathy where she had some confusion. The patient was discharged home on dexamethasone 4 mg twice a day that seemed to help with the confusion. The patient has forego going with chemotherapy, but she has had one course of radiation for her brain metastasis. The patient was brought in the ER and found that her kidney function was very diminished, so she was admitted at that time with acute kidney injury along with urinary tract infection. Today now, the patient states she feels about the same. She did eat well for breakfast. She is very drowsy. She denies headache at this time, but says she just wanted to sleep. She does answer questions appropriately. Swelling to her lower extremities and hands seem to be slightly improved today. She denies any shortness of breath at times. She has taken her oxygen off. OBJECTIVE: VITAL SIGNS: The patient's weight today, she weighs 198 pounds. Temperature is 97.7, pulse is 72, blood pressure is 125/65, respiratory rate is 20, oxygen saturation on room air is 92%. GENERAL: This is an elderly female, in no acute distress. CARDIAC: Heart tones regular rate and rhythm. ABDOMEN: Soft, nontender, nondistended. Bowel sounds hypoactive, but present. LUNGS: Sounds are clear. I do not hear any crackles or rales today. EXTREMITIES: Pedal edema is slightly improved along with her hands. LABORATORY DATA: The patient's lab work that was obtained today. CBC shows a white count just slightly elevated at 10.3, hemoglobin stable at 9.5. That was the CBC from yesterday. The patient's lab work from today; she just had a chemistry panel obtained which shows sodium at 134, potassium at 5.0, BUN 96, creatinine 4.03, GFR is 11. Calcium is low at 8.4. The patient's I and O since she has been admitted; she has had 3800 mL out voiding, she has only had 1800 mL in. IMPRESSION: 1. Renal cancer with metastasis to the lung and brain with recent acute kidney injury after radiation. Plan: The patient's lab work is worse today. Her BUN is 96, creatinine is 4.03, GFR is at 11. We will repeat lab work later this evening at 9:00 PM. Nephrology was consulted yesterday at [facility] in [place]. She was thought to have a prerenal kidney insult which caused her JERSEY. She did get one dose of 10 mg Lasix this morning. We will stop her Lasix. Start IV fluids of Normal Saline at 35 ml/hr. We will continue with Alex wraps to her upper extremities to help with edema along with alex wraps to her lower extremities. At this time, we will continue to monitor patient closely, watch her kidney function. She is also taking dexamethasone 4 mg twice a day for the brain metastasis. 2. Urinary tract infection. The patient's urinalysis upon admission showed many bacteria. We are going to continue her on renal dose IV Cipro as ordered. 3. Pain secondary to cancer. Plan: We will continue with hydrocodone and Tylenol as needed for pain. 4. History of insomnia. Plan: Continue with amitriptyline 10 mg at bedtime. 5. Deep vein thrombosis prophylaxis. Plan: We will continue with Lovenox 30 mg subcutaneously daily. 6. History of hypothyroidism. Plan: Continue with levothyroxine 112 mcg. 7. History of depression. Plan: We will continue with patient's Paxil 10 mg daily. OVERALL PLAN: We will continue to watch the patient's renal function closely, with accurate I's and O's and repeat BMP this evening. /[id number]/MODL MTDD
[2019-10-05] MEDS ORDERED: Sodium Chloride 0.9% 500 ML IV SCH (12:30)
[2019-10-05] MEDS: Calcium Carbonate 500 MG Tab.Chew PO PRN (15:05)
[2019-10-05] MEDS: Ciprofloxacin in D5W 400 MG in Premix Bag 1 BAG IV SCH ×2 (15:29)
[2019-10-05] MEDS: Sodium Chloride 0.9% 50 ML IV SCH (15:31)
[2019-10-05 15:53] VITALS: BP 139/80; PULSE 94
[2019-10-05] MEDS ORDERED: EPINEPHrine 1:10,000 1 MG/10 ML Syringe IVPUSH ONE (19:46)
--- NOTE | 2019-10-05 20:37 | PCM.SN ---
- Free Text/Narrative Note: [id number] October 2019. I was called to respond to an in house code as I was provider in the emergency department, in house at that time. I responded to room 125 where CPR was in progress. Her was present in the room. He made comment to me that "this doesn't look good" Monitor applied showing PEA, and a very ashen appearing patient. CPR was continued other than switching of compressors, with bag mask valve oxygenation occurring. IV placement was used to administer 1 mg of epinephrine. Intubation attempt per myself after oxygenation, unsuccessful placement secondary of blade/light malfunction. Resumed bag mask valve oxygenation. CPR was paused and monitor reviewed showing now asystole. CPR resumed with ventilations. Discussion with at bedside who agreed that resuscitation efforts should be stopped at this time. 1950 hrs. resuscitation event was stopped.
[2019-10-05] MEDS: EPINEPHrine 1:10,000 1 MG/10 ML Syringe IVPUSH ONE ×2 (21:47→23:02)
[2019-10-05] MEDS: Amitriptyline 10 MG Tab PO SCH (21:49)
--- NOTE | 2019-10-10 10:03 | DISCH ---
The patient on 10/05/2019. 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 BRIEF HISTORY AND ESSENTIAL PHYSICAL FINDINGS: This is a 78-year-old female patient, who had renal cancer 5 years ago and she had one kidney removed at that time. The patient had an exacerbation of metastasis within the last 6-7 months. She was found to have a lung lesion on x-ray. She was also found to have multiple brain metastases. She had foregone chemotherapy, but she underwent one treatment of radiation for her brain metastasis. The patient was placed on dexamethasone 4 mg twice a day to help with the brain swelling and confusion. The patient was at home and she was having some more weakness. She was brought to the emergency room where they found that she was in acute kidney injury. She was admitted at that time. SIGNIFICANT LABS XRAYS AND CONSULTATION FINDINGS: The patient's lab work upon admission showed white count at 11.99, hemoglobin was stable at 10.4. The patient's sodium was 132, potassium 5.2, creatinine was elevated at 3.14, BUN 91, GFR at that time was 14. The patient's urinalysis showed many bacteria. The patient's basic metabolic panel on 10/05/2019, the day where she showed her sodium at 134, potassium at 5.0, BUN at 96, creatinine at 4.03, GFR was down to 11. Her head CT showed that her metastasis was the same that was unchanged from previous head CT. The patient's chest x-ray that she obtained in the emergency room showed pulmonary vascular congestion per Radiology. The patient had a consult. JUDAH really called Nephrology at [facility] in [place]. They had determined that was most likely prerenal acute kidney injury that there was low need for dialysis at that time, and we were to monitor the patient to see how her kidney function would improve or not improve. COURSE IN HOSPITAL WITH COMPLICATIONS IF ANY: The patient seem to be doing well on the morning on rounds. When I had seen her, she was talking, she was coherent, she was eating well for breakfast. She denied any pain at that time. CONDITION TREATMENT AND FINAL DISPOSITION ON DISCHARGE AND PROGNOSIS: The patient roughly around 8:30 p.m. I was notified by a phone call. I arrived at the hospital. Upon that time, CPR had been stopped. EMS Services was consulted here with Josemanuel GILES. CPR was started on the patient per her 's request. He was in the room with his . She had woke up from a nap and she wanted to go the bathroom. Her and nursing staff assisted her and she walked into the bathroom. After going to the bathroom, she was on her way back to bed when she was noted to be weaker and that she had a blank stare on her face. At that time, they got her into bed. She was nonresponsive. CPR was started at that time. Josemanuel Escoto, Emergency Medicine was consulted. One amp of epinephrine was given. The patient was found to be in PEA. Endotracheal tube was attempted to be placed. after some time had decided that this was enough and the code was stopped at that time. I arrived shortly after that. Family members were notified. Patient was pulseless and no respirations noted at that time. /[id number]/MODL MTDD
== END 2019-10-05 19:50 | disposition expired | DRG 689 ==
LOC: KA.ED 10:22 → KA.MS 13:40
PROVIDERS: ADMIT Physician Assistant; ATTEND Family Medicine
PROC: 5A12012 Performance of Cardiac Output, Single, Manual (ICD-10-PCS; principal; 2019-10-05)
DX: N39.0 Urinary tract infection, site not specified (principal); G93.6 Cerebral edema; C78.00 Secondary malignant neoplasm of unspecified lung; C79.31 Secondary malignant neoplasm of brain; N17.9 Acute kidney failure, unspecified; E89.0 Postprocedural hypothyroidism; I46.9 Cardiac arrest, cause unspecified; H91.90 Unspecified hearing loss, unspecified ear; H54.7 Unspecified visual loss; I10 Essential (primary) hypertension; K44.9 Diaphragmatic hernia without obstruction or gangrene; G89.29 Other chronic pain; M41.9 Scoliosis, unspecified; F32.9 Major depressive disorder, single episode, unspecified; Z88.8 Allergy status to other drugs, medicaments and biological substances; Z79.890 Hormone replacement therapy; D89.9 Disorder involving the immune mechanism, unspecified; Z79.52 Long term (current) use of systemic steroids; Z96.653 Presence of artificial knee joint, bilateral; Z90.5 Acquired absence of kidney; R31.9 Hematuria, unspecified; F41.9 Anxiety disorder, unspecified; E78.00 Pure hypercholesterolemia, unspecified; G89.3 Neoplasm related pain (acute) (chronic); R53.1 Weakness; R60.0 Localized edema; M19.90 Unspecified osteoarthritis, unspecified site; G47.00 Insomnia, unspecified; Z85.528 Personal history of other malignant neoplasm of kidney; Z91.040 Latex allergy status; Z88.0 Allergy status to penicillin; Z91.048 Other nonmedicinal substance allergy status; Z91.018 Allergy to other foods; Z79.82 Long term (current) use of aspirin; Z90.710 Acquired absence of both cervix and uterus; Z87.891 Personal history of nicotine dependence; Z91.02 Food additives allergy status; Z79.899 Other long term (current) drug therapy; Z92.3 Personal history of irradiation
CPT/HCPCS: 36415; 70450; 71045; 80048; 80053; 81001; 82140; 82272; 83605; 83880; 84439; 84443; 85025; 85610; 85730; 87086; 97162-GP; 99284; A9270-GY; J0171; J0744; J1650; J1940; J7030; J7040; J7050; J8540